=== PATIENT | female | born 1965 | race Caucasian/White ===

== ENCOUNTER 2017-11-14 09:29 | Emergency (ER) | payer BC ==
[2017-11-14] MEDS ORDERED: Albuterol/Ipratropium 3.0-0.5 MG/3 ML Neb Soln ONE (09:43)
[2017-11-14] MEDS ORDERED: methylPREDNISolone Sodium Succinate 125 MG/2 ML SDV ONE (10:22)
[2017-11-14 17:26] VITALS: BP 122/76
--- NOTE | 2017-11-14 18:19 | CR ---
EXAMINATION: Portable chest radiograph. HISTORY: Shortness of breath. FINDINGS: The trachea is midline. The cardiomediastinal silhouette is within normal limits. Possible consolidat ion within the left lung base. No pleural effusion or pneumothorax. Osseous structures appear unremarkable. IMPRESSION: Possible left basilar/lingular consolidation.
[2017-11-15 12:20] LABS: CHLORIDE,CL 104 mmol/L (98-110); SODIUM,NA 139 mmol/L (136-146)
== END 2017-11-14 11:51 | disposition home or self-care (01) ==
LOC: MW.ED 09:29
DX: J44.9 Chronic obstructive pulmonary disease, unspecified (principal); Z91.14 Patient's other noncompliance with medication regimen
CPT/HCPCS: 36415; 71010; 71010-26; 80053; 84484; 85025; 85610; 85730; 93005; 96374; 99283; 99285-25

== ENCOUNTER 2018-07-24 19:22 | Emergency (ER) | payer BC ==
[2018-07-24 19:43] VITALS: BP 138/78
--- NOTE | 2018-07-24 19:50 | EDM.PDOC ---
ED HPI GENERAL MEDICAL PROBLEM - General Chief Complaint: General Stated Complaint: PT HAS DIFFICULTY BREATHING Time Seen by Provider: 07/24/18 19:48 Source of Information: Reports: Patient History Limitations: Reports: No Limitations - History of Present Illness INITIAL COMMENTS - FREE TEXT/NARRATIVE: HISTORY AND PHYSICAL: History of present illness: Patient is a 52-year-old female well-known to me here with complaint of back pain. Past medical history of anxiety disorder, bipolar disorder, COPD, type 2 diabetes, hypertension. Patient states that 5 weeks ago she was in the hospital in [place] for her depression and at that time they started weaning her off of her Effexor. She states that she went from 225 mg down to 75 mg over a period of couple weeks. Says since that time she's been experiencing back pain, shakiness, anxiety. She also reports she is feeling nauseous after she eats. She denies any chest pain/ pressure, SOB, abdominal pain, vomiting, diarrhea. She saw her primary care provider 1 week ago for these symptoms and she did have a thoracic and lumbar spine x-ray which showed degenerative changes. Her labs did show calcium of 10.6. She denies any suicidal thoughts. She has a follow-up with Lucille Guerra on 14 August. Patient's main reason for coming to the ED is her back pain. She states it is on the left side of her low back. She has radiation of pain down her left lateral leg. She denies any saddle anesthesia, loss of bowel or bladder control , or lower extremity weakness. Patient states she called the clinic today and she has an appt. tomorrow. Review of systems: As per history of present illness and below otherwise all systems reviewed and negative. Past medical history: As per history of present illness and as reviewed below otherwise noncontributory. Surgical history: As per history of present illness and as reviewed below otherwise noncontributory. Social history: No reported history of drug or alcohol abuse. Family history: As per history of present illness and as reviewed below otherwise noncontributory. Physical exam: General: Patient sitting comfortably in no acute distress and nontoxic appearing. Patient is tremulous. HEENT: Atraumatic, normocephalic, pupils reactive, negative for conjunctival pallor or scleral icterus, mucous membranes moist, throat clear, neck supple, nontender, trachea midline. No meningeal signs. Lungs: Clear to auscultation, breath sounds equal bilaterally, chest nontender. Heart: S1S2, regular, negative for clicks, rubs, or overt murmur. Abdomen: Soft, nondistended, nontender. Negative for masses or hepatosplenomegaly. Negative for costovertebral tenderness. Pelvis: Stable nontender. Genitourinary: Deferred. Rectal: Deferred. Spin: No spinous process tenderness at thoracic and cervical spine. Pain to palpation of left paraspinals. Extremities: Atraumatic, negative for cords or calf pain. Neurovascular unremarkable. Neuro: Awake, alert, oriented. Cranial nerves II through XII unremarkable. Cerebellum unremarkable. Motor and sensory unremarkable throughout. Exam nonfocal. Notes: Discussed with patient that with her hypercalcemia and array of symptoms she should discuss checking her parathyroid with her primary care provider Diagnostics: [] Therapeutics: IM Ketorolac 60mg IM Norflex 60mg Zofran ODT Prescriptions: None Impression: Lumbar back pain Plan: 1. Heat or ice, motrin, and gentle stretches as tolerated. 2. Follow up with your primary care provider tomorrow 3. Return to ED as needed as discussed Definitive disposition and diagnosis as appropriate pending reevaluation and review of above. back Pain Score (Numeric/FACES): 8 - Related Data Allergies Allergy/AdvReac Type Severity Reaction Status Date / Time liraglutide [From Victoza] Allergy Depression Verified 11/14/17 17:22 prednisone Allergy Depression Verified 11/14/17 17:22 Home Meds: Home Meds LORazepam 0.5 mg PO DAILY 11/14/14 [History] Lisinopril 2.5 mg PO DAILY 11/14/14 [History] Sertraline [Zoloft] 100 mg PO BEDTIME 11/14/14 [History] atorvaSTATin [Lipitor] 80 mg PO BEDTIME 11/14/14 [History] sitaGLIPtin Phos/Metformin HCl [Janumet 50-500 mg Tablet] 1 each PO BID [History] Aspirin [Prabhu Chewable] 81 mg PO DAILY 11/22/14 [History] Levomefolate Calcium [l-Methylfolate] 15 mg PO DAILY 11/22/14 [History] Melatonin 1 mg PO DAILY 11/22/14 [History] Omeprazole 20 mg PO BEDTIME 11/22/14 [History] Vortioxetine Hydrobromide [Brintellix] 20 mg PO DAILY 11/22/14 [History] Ziprasidone HCl 40 mg PO DAILY 11/22/14 [History] lamoTRIgine [Lamotrigine] 150 mg PO DAILY 11/22/14 [History] Past Medical History - Past Health History Medical/Surgical History: Denies Medical/Surgical History HEENT History: Reports: None Cardiovascular History: Reports: High Cholesterol Respiratory History: Reports: COPD 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: Musculoskeletal History: Reports: Arthritis Psychiatric History: Reports: Anxiety, Depression Endocrine/Metabolic History: Reports: Diabetes, Type II Immunologic History: Reports: None - Infectious Disease History Infectious Disease History: Reports: Chicken Pox - Past Surgical History HEENT Surgical History: Reports: Tonsillectomy Cardiovascular Surgical History: Reports: Other (See Below) Female Surgical History: Reports: Hysterectomy Social & Family History - Family History Family Medical History: Noncontributory HEENT: Reports: None Cardiac: Reports: Blood Clots/VTE/DVT, High Cholesterol, Hypertension, [place] Respiratory: Reports: Asthma GI: Reports: None : Reports: None OBGYN: Reports: None Musculoskeletal: Reports: Arthritis Neurological: Reports: None Psychiatric: Reports: Bipolar, Depression, Hallucinations Endocrine/Metabolic: Reports: Diabetes, type II Hematologic: Reports: None Immunologic: Reports: None Dermatologic: Reports: None Oncologic: Reports: Lung, Lymphoma - Tobacco Use Smoking Status *Q: Current Every Day Smoker Years of Tobacco use: 30 Packs/Tins Daily: 15 - Caffeine Use Caffeine Use: Reports: Soda - Recreational Drug Use Recreational Drug Use: No ED ROS GENERAL - Review of Systems Review Of Systems: ROS reveals no pertinent complaints other than HPI. ED EXAM, GENERAL - Physical Exam Exam: See Below (see dictation) Course - Vital Signs Last Recorded V/S: Last Vital Signs Temp 36.0 C 07/24/18 19:41 Pulse 108 H 07/24/18 19:41 Resp 18 07/24/18 19:41 BP 138/78 07/24/18 19:41 Pulse Ox 95 07/24/18 19:41 - Orders/Labs/Meds Orders: Active Orders 24 hr Category Date Time Status Ondansetron [Zofran ODT] Med 07/24/18 20:32 Once 4 mg PO ONETIME ONE Meds: Medications Discontinued Medications Generic Name Dose Route Start Last Admin Trade Name Sidney PRN Reason Stop Dose Admin Ketorolac Tromethamine 60 mg 07/24/18 19:59 07/24/18 20:15 Toradol IM 07/24/18 20:00 60 mg ONETIME ONE Administration Orphenadrine Citrate 60 mg 07/24/18 19:59 07/24/18 20:18 Norflex IM 07/24/18 20:00 60 mg NOW STA Administration Departure - Departure Time of Disposition: 20:35 Disposition: Home, Self-Care 01 Condition: Good Clinical Impression: Back pain - Discharge Information Referrals: PCP,None [Primary Care Provider] - Forms: ED Department Discharge Additional Instructions: The following information is given to patients seen in the emergency department who are being discharged to home. This information is to outline your options for follow-up care. We provide all patients seen in our emergency department with a follow-up referral. The need for follow-up, as well as the timing and circumstances, are variable depending upon the specifics of your emergency department visit. If you don't have a primary care physician on staff, we will provide you with a referral. We always advise you to contact your personal physician following an emergency department visit to inform them of the circumstance of the visit and for follow-up with them and/or the need for any referrals to a consulting specialist. The emergency department will also refer you to a specialist when appropriate. This referral assures that you have the opportunity for follow-up care with a specialist. All of these measure are taken in an effort to provide you with optimal care, which includes your follow-up. Under all circumstances we always encourage you to contact your private physician who remains a resource for coordinating your care. When calling for follow-up care, please make the office aware that this follow-up is from your recent emergency room visit. If for any reason you are refused follow-up, please contact the [facility] Emergency Department at and asked to speak to the emergency department charge nurse. [facility] [address] [place] [id number] 1. Heat or ice, motrin, and gentle stretches as tolerated. 2. Follow up with your primary care provider tomorrow 3. Return to ED as needed as discussed - My Orders Last 24 Hours: My Active Orders 07/24/18 20:32 Ondansetron [Zofran ODT] 4 mg PO ONETIME ONE - Assessment/Plan Last 24 Hours: My Active Orders 07/24/18 20:32 Ondansetron [Zofran ODT] 4 mg PO ONETIME ONE
[2018-07-24] MEDS ORDERED: Ketorolac 60 MG/2 ML SDV IM ONE (19:59)
[2018-07-24] MEDS ORDERED: Ondansetron 4 MG Tab.DIS PO ONE (20:32)
== END 2018-07-24 21:00 | disposition home or self-care (01) ==
LOC: MW.ED 19:22
DX: M54.5 Low back pain (principal); E11.9 Type 2 diabetes mellitus without complications; F17.210 Nicotine dependence, cigarettes, uncomplicated; F31.9 Bipolar disorder, unspecified; F41.9 Anxiety disorder, unspecified; Z79.82 Long term (current) use of aspirin; Z79.899 Other long term (current) drug therapy; Z88.8 Allergy status to other drugs, medicaments and biological substances
CPT/HCPCS: 96372; 99283; A9270; J1885; J2360

== ENCOUNTER 2019-01-25 16:21 | Emergency (ER) | payer BC ==
[2019-01-25] MEDS ORDERED: Succinylcholine 200 MG/10 ML MDV IV ONE (16:22)
[2019-01-25] MEDS ORDERED: Rocuronium 100 MG/10 ML MDV IVPUSH ONE (16:22)
[2019-01-25] MEDS ORDERED: Sodium Chloride 0.9% 1,000 ML IV ONE (16:31)
[2019-01-25] MEDS ORDERED: Sodium Chloride 0.9% 10 ML Syringe FLUSH PRN (16:31)
[2019-01-25] MEDS ORDERED: Sodium Chloride 0.9% 2.5 ML Syringe FLUSH PRN (16:31)
[2019-01-25] MEDS ORDERED: Naloxone 0.4 MG/ML Syringe IVPUSH ONE (16:31)
--- NOTE | 2019-01-25 16:33 | EDM.PDOC ---
ED HPI GENERAL MEDICAL PROBLEM - General Chief Complaint: Drug or Alcohol Abuse Stated Complaint: OVERDOSE Time Seen by Provider: 01/25/19 16:29 - History of Present Illness INITIAL COMMENTS - FREE TEXT/NARRATIVE: HISTORY AND PHYSICAL: History of present illness: The patient is a 53-year-old female who is here via EMS after family called for an intentional overdose of her medications. Patient has a known history of COPD and according to her old clinic provider who now works here in the ED she was not very compliant with that. The patient follows with a local counselor, Lucille Guerra, and police initially brought me prescription bottles of Xanax 1 mg tablets and Ritalin 10 milligrams tablets of which there were 34 of the 1 mg Xanax tablets missing and that prescription had a total of 60 tablets dispensed on January 04 with a prescription indicating to take one tablet twice a day as needed and the Ritalin had 11 tablets left of a prescription written on November 15 with 60 tablets. When I discussed with the and he said that the counselor was trying to wean her off the Xanax and onto a new medication but he is not sure of that knee. He says that she has multiple medications at home and the family has currently gone home to get all those meds for us and they will be sent with the patient. EMS says that the patient did admit to them that she did take these medications intentionally to harm herself. It is unsure of the exact time of ingestion but was sometime this morning as she stopped testing her granddaughter this morning which is why they were concerned and called for help. Currently in the ED the patient does not offer any history to me and is very drowsy and obtunded and can answer simple questions but cannot focus on any significant questions and cannot tell me about today's events. Further information from the patient is unavailable and the history is primarily from the patient's family. EMS said there was no vomit at the scene and the granddaughter said that when she came home and was told by the patient that she had taken this overdose she also noticed no vomiting. The patient had no other complaints and did not offer any reasons why she did these actions today. EMS also noted that the patient had NyQuil at the bedside and she may have been taking some of that as well Review of systems: As per history of present illness and below otherwise all systems reviewed and negative. Past medical history: As per history of present illness and as reviewed below otherwise noncontributory. Surgical history: As per history of present illness and as reviewed below otherwise noncontributory. Social history: No reported history of drug or alcohol abuse. Family history: As per history of present illness and as reviewed below otherwise noncontributory. Physical exam: General: well-developed obese female who is arousable to stimulation but does not speak spontaneously and cannot perform full sentences and answer to questions. She has no gag reflex. Vital signs are noted by me including her O2 sat on room air which responded with oxygen therapy. HEENT: Atraumatic, normocephalic, pupils are small 2 mm and sluggish, negative for conjunctival pallor or scleral icterus, mucous membranes very dry throat clear, neck supple, nontender, trachea midline. Lungs: Poor effort and diminished air exchange throughout all ely, breath sounds equal bilaterally, chest nontender. Heart: S1S2, regular, negative for clicks, rubs, or JVD. Abdomen: Soft, nondistended, nontender. Negative for masses or hepatosplenomegaly. NABS Pelvis: Stable nontender. Genitourinary: Deferred. Rectal: Deferred. Extremities: Atraumatic, no visible evidence of any trauma defects or deformities. Neurovascular unremarkable. Neuro: Patient is arousable to stimulation and will open her eyes but immediately shuts them and goes back to an obtunded state. She is able to wiggle her toes and squeeze my hands but motor is diminished throughout due to poor effort but there is no focal or lateralizing signs. Further exam is unobtainable Diagnostics: EKG CBC CMP Tylenol and aspirin levels alcohol INR troponin TSH UA UDS chest x- ray post intubation Therapeutics: IV O2 monitor IV fluids Narcan Patient was given 2 mg of Narcan to see if there was much response. There is no history of any narcotics use but is unclear as many of the medications the patient takes are unclear. Patient seemed a little bit more arousable but went back to a obtunded state. At this point anesthesia is at bedside and we will prophylactically intubate the patient for airway protection as the extent of overdose is unknown. and family are aware that we need to protect the airway.Poison control was contacted by nursing at 1637 and they recommend symptomatic care and once more information is known about any other coingestions they will follow up with the patient in [place] 1635: Case was discussed with Dr. Brito the ER doctor at [place] at [facility] who accepts the patient for transfer and flight team is in route. Please note that I will continue to monitor testing results up until the patient is transferred by flight. I will check the post intubation x-ray. Please see anesthesia note for intubation events. Critical care time excluding procedures:31min Impression: Intentional overdose with significant altered mental status Definitive disposition and diagnosis as appropriate pending reevaluation and review of above. - Related Data Allergies Allergy/AdvReac Type Severity Reaction Status Date / Time liraglutide [From Victoza] Allergy Depression Verified 10/30/18 13:46 prednisone Allergy Depression Verified 10/30/18 13:46 Home Meds: Home Meds LORazepam 0.5 mg PO DAILY 11/14/14 [History] Lisinopril 2.5 mg PO DAILY 11/14/14 [History] Sertraline [Zoloft] 100 mg PO BEDTIME 11/14/14 [History] atorvaSTATin [Lipitor] 80 mg PO BEDTIME 11/14/14 [History] sitaGLIPtin Phos/Metformin HCl [Janumet 50-500 mg Tablet] 1 each PO BID [History] Aspirin [Prabhu Chewable] 81 mg PO DAILY 11/22/14 [History] Levomefolate Calcium [l-Methylfolate] 15 mg PO DAILY 11/22/14 [History] Melatonin 1 mg PO DAILY 11/22/14 [History] Omeprazole 20 mg PO BEDTIME 11/22/14 [History] Vortioxetine Hydrobromide [Brintellix] 20 mg PO DAILY 11/22/14 [History] Ziprasidone HCl 40 mg PO DAILY 11/22/14 [History] lamoTRIgine [Lamotrigine] 150 mg PO DAILY 11/22/14 [History] Azithromycin [Zithromax] 250 mg PO DAILY 5 Days #6 tab 10/30/18 [Rx] Past Medical History - Past Health History Medical/Surgical History: Denies Medical/Surgical History HEENT History: Reports: None Cardiovascular History: Reports: High Cholesterol Respiratory History: Reports: COPD 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: Musculoskeletal History: Reports: Arthritis Psychiatric History: Reports: Anxiety, Depression Endocrine/Metabolic History: Reports: Diabetes, Type II Immunologic History: Reports: None - Infectious Disease History Infectious Disease History: Reports: Chicken Pox - Past Surgical History HEENT Surgical History: Reports: Tonsillectomy Cardiovascular Surgical History: Reports: Other (See Below) Female Surgical History: Reports: Hysterectomy Social & Family History - Family History Family Medical History: Noncontributory HEENT: Reports: None Cardiac: Reports: Blood Clots/VTE/DVT, High Cholesterol, Hypertension, CT Respiratory: Reports: Asthma GI: Reports: None : Reports: None OBGYN: Reports: None Musculoskeletal: Reports: Arthritis Neurological: Reports: None Psychiatric: Reports: Bipolar, Depression, Hallucinations Endocrine/Metabolic: Reports: Diabetes, type II Hematologic: Reports: None Immunologic: Reports: None Dermatologic: Reports: None Oncologic: Reports: Lung, Lymphoma - Caffeine Use Caffeine Use: Reports: Soda ED ROS GENERAL - Review of Systems Review Of Systems: ROS reveals no pertinent complaints other than HPI. ED EXAM, GENERAL - Physical Exam Exam: See Below (See dictation) Course - Orders/Labs/Meds Orders: Active Orders 24 hr Category Date Time Status Blood Glucose Check, Bedside [RC] ONETIME Care 01/25/19 16:30 Ordered Cardiac Monitoring [RC] . DIRECTED Care 01/25/19 16:30 Ordered EKG Documentation Completion [RC] STAT Care 01/25/19 16:30 Ordered Oxygen Therapy, ED [RC] ASDIRECTED Care 01/25/19 16:30 Ordered Pulse Oximetry [RC] ASDIRECTED Care 01/25/19 16:30 Ordered Chest 1V Frontal [CR] Stat Exams 01/25/19 16:31 Ordered ACETAMINOPHEN [CHEM] Stat Lab 01/25/19 16:30 Ordered CBC WITH AUTO DIFF [HEME] Stat Lab 01/25/19 16:30 Ordered COMPREHENSIVE METABOLIC PN,CMP [CHEM] Stat Lab 01/25/19 16:30 Ordered DRUG SCREEN, URINE [URCHEM] Stat Lab 01/25/19 16:31 Ordered ETHANOL BLOOD MEDICAL [CHEM] Stat Lab 01/25/19 16:30 Ordered INR,PT,PROTHROMBIN TIME [COAG] Stat Lab 01/25/19 16:30 Ordered SALICYLATE [CHEM] Stat Lab 01/25/19 16:31 Ordered TROPONIN I [CHEM] Stat Lab 01/25/19 16:30 Ordered TSH [CHEM] Stat Lab 01/25/19 16:30 Ordered UA RFX VERONICA AND CULT IF INDIC [URIN] Stat Lab 01/25/19 16:31 Ordered Sodium Chloride 0.9% [Normal Saline] 1,000 ml Med 01/25/19 16:31 Ordered IV STAT Sodium Chloride 0.9% [Saline Flush] Med 01/25/19 16:31 Ordered 10 ml FLUSH ASDIRECTED PRN Sodium Chloride 0.9% [Saline Flush] Med 01/25/19 16:31 Ordered 2.5 ml FLUSH ASDIRECTED PRN Saline Lock Insert [OM.PC] Stat Oth 01/25/19 16:30 Ordered Medication Orders Sodium Chloride (Normal Saline) 1,000 mls @ 999 mls/hr IV STAT ONE Stop: 01/25/19 17:31 Sodium Chloride (Saline Flush) 10 ml FLUSH ASDIRECTED PRN PRN Reason: Keep Vein Open Sodium Chloride (Saline Flush) 2.5 ml FLUSH ASDIRECTED PRN PRN Reason: Keep Vein Open Meds: Medications Generic Name Dose Route Start Last Admin Trade Name Freq PRN Reason Stop Dose Admin Sodium Chloride 1,000 mls @ 999 mls/hr 01/25/19 16:31 Normal Saline IV 01/25/19 17:31 STAT ONE Sodium Chloride 10 ml 01/25/19 16:31 Saline Flush FLUSH ASDIRECTED PRN Keep Vein Open Sodium Chloride 2.5 ml 01/25/19 16:31 Saline Flush FLUSH ASDIRECTED PRN Keep Vein Open Discontinued Medications Generic Name Dose Route Start Last Admin Trade Name Freq PRN Reason Stop Dose Admin Naloxone HCl 2 mg 01/25/19 16:31 Narcan IVPUSH 01/25/19 16:32 ONETIME ONE Departure - Departure Time of Disposition: 16:46 Disposition: DC/Tfer to Acute Hospital 02 Condition: Fair, Serious Clinical Impression: Intentional drug overdose Qualifiers: Encounter type: initial encounter Qualified Code(s): T50.902A - Poisoning by unspecified drugs, medicaments and biological substances, intentional self-harm , initial encounter Altered mental status Qualifiers: Altered mental status type: stupor Qualified Code(s): R40.1 - Stupor - Discharge Information Referrals: PCP,Unknown [Primary Care Provider] - Forms: ED Department Discharge - My Orders Last 24 Hours: My Active Orders 01/25/19 16:30 Blood Glucose Check, Bedside [RC] ONETIME Cardiac Monitoring [RC] . DIRECTED EKG Documentation Completion [RC] STAT Oxygen Therapy, ED [RC] ASDIRECTED Pulse Oximetry [RC] ASDIRECTED ACETAMINOPHEN [CHEM] Stat CBC WITH AUTO DIFF [HEME] Stat COMPREHENSIVE METABOLIC PN,CMP [CHEM] Stat ETHANOL BLOOD MEDICAL [CHEM] Stat INR,PT,PROTHROMBIN TIME [COAG] Stat TROPONIN I [CHEM] Stat TSH [CHEM] Stat Saline Lock Insert [OM.PC] Stat 01/25/19 16:31 Chest 1V Frontal [CR] Stat DRUG SCREEN, URINE [URCHEM] Stat SALICYLATE [CHEM] Stat UA RFX VERONICA AND CULT IF INDIC [URIN] Stat Sodium Chloride 0.9% [Normal Saline] 1,000 ml IV STAT Sodium Chloride 0.9% [Saline Flush] 10 ml FLUSH ASDIRECTED PRN Sodium Chloride 0.9% [Saline Flush] 2.5 ml FLUSH ASDIRECTED PRN - Assessment/Plan Last 24 Hours: My Active Orders 01/25/19 16:30 Blood Glucose Check, Bedside [RC] ONETIME Cardiac Monitoring [RC] . DIRECTED EKG Documentation Completion [RC] STAT Oxygen Therapy, ED [RC] ASDIRECTED Pulse Oximetry [RC] ASDIRECTED ACETAMINOPHEN [CHEM] Stat CBC WITH AUTO DIFF [HEME] Stat COMPREHENSIVE METABOLIC PN,CMP [CHEM] Stat ETHANOL BLOOD MEDICAL [CHEM] Stat INR,PT,PROTHROMBIN TIME [COAG] Stat TROPONIN I [CHEM] Stat TSH [CHEM] Stat Saline Lock Insert [OM.PC] Stat 01/25/19 16:31 Chest 1V Frontal [CR] Stat DRUG SCREEN, URINE [URCHEM] Stat SALICYLATE [CHEM] Stat UA RFX VERONICA AND CULT IF INDIC [URIN] Stat Sodium Chloride 0.9% [Normal Saline] 1,000 ml IV STAT Sodium Chloride 0.9% [Saline Flush] 10 ml FLUSH ASDIRECTED PRN Sodium Chloride 0.9% [Saline Flush] 2.5 ml FLUSH ASDIRECTED PRN
[2019-01-25] MEDS ORDERED: Lidocaine 1% 50 ML MDV ONE (16:52)
[2019-01-25] MEDS ORDERED: Propofol 200 MG/20 ML SDV ONE (16:53)
[2019-01-25 17:23] LABS: CHLORIDE,CL 105 mmol/L (98-107); SODIUM,NA 139 mmol/L (136-145)
--- NOTE | 2019-01-25 17:46 | CR ---
Indication: Pain. Shortness of breath. Technique: A single AP portable view of the chest was obtained. Comparison: October 30, 2018. Findings: An ETT was identified with the tip extending into the right main bronchus. An NG tube is identified extending into the left lower lobe. The heart is enlarged. Left basilar atelectasis and/or infiltrate and small left pleural effusion is seen. The right lung is clear. No pneumothorax is identified. Impression: ET tube identified with the tip extending into the right mainstem bronchus. Left basilar atelectasis and/or infiltrate and small left pleural effusion. The findings were discussed with Dr. Mckee at the time of this dictation Dictated by Suzan Lucas MD @ Jan 25 2019 5:41PM Signed by Dr. Suzan Lucas @ Jan 25 2019 5:43PM
--- NOTE | 2019-01-25 18:13 | CR ---
Indication: Tube evaluation after patient movement Technique: Chest 1 view Comparison: January 25, 2019 at 5:01 p.m. Findings/Impression: An endotracheal tube tip terminates at the level of the zhanna and will need to be retracted. A gastric drainage tube is present. The gastric tube is only seen to the level of the mid cardiac shadow. The tip is not seen due to suboptimal exposure at the level of the lower chest. Recommend KUB to confirm placement. Stable cardiac size. No pneumothorax. Opacity at the left lung base may reflect atelectasis/infection/effusion. Dictated by Kaylyn Mahajan MD @ Jan 25 2019 6:11PM Signed by Dr. Kaylyn Mahajan @ Jan 25 2019 6:11PM
[2019-01-26 08:47] VITALS: BP 131/75
== END 2019-01-25 17:45 ==
LOC: MW.ED 16:21
DX: T43.632A Poisoning by methylphenidate, intentional self-harm, initial encounter (principal); T42.4X2A Poisoning by benzodiazepines, intentional self-harm, initial encounter; R41.82 Altered mental status, unspecified; E78.00 Pure hypercholesterolemia, unspecified; E11.9 Type 2 diabetes mellitus without complications; F41.9 Anxiety disorder, unspecified; F32.9 Major depressive disorder, single episode, unspecified; Z88.8 Allergy status to other drugs, medicaments and biological substances; Z88.5 Allergy status to narcotic agent; Z79.899 Other long term (current) drug therapy; Z79.82 Long term (current) use of aspirin
CPT/HCPCS: 71045; 80053; 80305; 81003; 82962; 84443; 84484; 85025; 85610; 93005; 96361; 96374; 99291; A9270; G0480; J0330; J2001; J2704; J7040; 99285

== ENCOUNTER 2019-02-19 09:02 | Emergency (ER) | payer BC ==
--- NOTE | 2019-02-19 09:26 | EDM.PDOC ---
ED HPI GENERAL MEDICAL PROBLEM - General Chief Complaint: Lower Extremity Injury/Pain Stated Complaint: SPOKE TO NURSE Time Seen by Provider: 02/19/19 09:22 - History of Present Illness INITIAL COMMENTS - FREE TEXT/NARRATIVE: HISTORY AND PHYSICAL: History of present illness: Patient 53-year-old female presented Serb left lower extremity pain and swelling this pain off and on for about 3 weeks she was hospitalized for psychiatric reasons. She denies any other complaints she has no history DVT or PE Review of systems: As per history of present illness and below otherwise all systems reviewed and negative. Past medical history: As per history of present illness and as reviewed below otherwise noncontributory. Surgical history: As per history of present illness and as reviewed below otherwise noncontributory. Social history: No reported history of drug or alcohol abuse. Family history: As per history of present illness and as reviewed below otherwise noncontributory. Physical exam: HEENT: Atraumatic, normocephalic, pupils reactive, negative for conjunctival pallor or scleral icterus, mucous membranes moist, throat clear, neck supple, nontender, trachea midline. Lungs: Clear to auscultation, breath sounds equal bilaterally, chest nontender. Heart: S1S2, regular, negative for clicks, rubs, or JVD. Abdomen: Soft, nondistended, nontender. Negative for masses or hepatosplenomegaly. Negative for costovertebral tenderness. Pelvis: Stable nontender. Genitourinary: Deferred. Rectal: Deferred. Extremities: No cords or calf pain tenderness to palpation left calf neurovascular exam unremarkable. Neuro: Awake, alert, oriented. Cranial nerves II through XII unremarkable. Cerebellum unremarkable. Motor and sensory unremarkable throughout. Exam nonfocal. Diagnostics: Ultrasound left lower extremity Therapeutics: None Impression: #1 left leg pain rule out DVT Definitive disposition and diagnosis as appropriate pending reevaluation and review of above. - Related Data Allergies Allergy/AdvReac Type Severity Reaction Status Date / Time liraglutide [From Victoza] Allergy Depression Verified 02/19/19 09:22 prednisone Allergy Depression Verified 02/19/19 09:22 Home Meds: Home Meds Lisinopril 10 mg PO DAILY 11/14/14 [History] atorvaSTATin [Lipitor] 40 mg PO BEDTIME 11/14/14 [History] sitaGLIPtin Phos/Metformin HCl [Janumet 50-500 mg Tablet] 1 each PO BID [History] Aspirin [Prabhu Chewable] 81 mg PO DAILY 11/22/14 [History] Omeprazole 20 mg PO BEDTIME 11/22/14 [History] lamoTRIgine [Lamotrigine] 250 mg PO DAILY 11/22/14 [History] Gabapentin [Neurontin] 1,200 mg PO TID 02/19/19 [History] Lurasidone HCl [Latuda] 80 mg PO DAILY 02/19/19 [History] Venlafaxine HCl [Venlafaxine ER] 37.5 mg PO DAILY 02/19/19 [History] Past Medical History - Past Health History Medical/Surgical History: Denies Medical/Surgical History HEENT History: Reports: None Cardiovascular History: Reports: High Cholesterol Respiratory History: Reports: COPD Gastrointestinal History: Reports: Colon Polyp [employer] History: Reports: Musculoskeletal History: Reports: Arthritis Psychiatric History: Reports: Anxiety, Depression Endocrine/Metabolic History: Reports: Diabetes, Type II Immunologic History: Reports: None - Infectious Disease History Infectious Disease History: Reports: Chicken Pox - Past Surgical History HEENT Surgical History: Reports: Tonsillectomy Cardiovascular Surgical History: Reports: Other (See Below) Female Surgical History: Reports: Hysterectomy Social & Family History - Family History Family Medical History: Noncontributory HEENT: Reports: None Cardiac: Reports: Blood Clots/VTE/DVT, High Cholesterol, Hypertension, [place] Respiratory: Reports: Asthma GI: Reports: None : Reports: None OBGYN: Reports: None Musculoskeletal: Reports: Arthritis Neurological: Reports: None Psychiatric: Reports: Bipolar, Depression, Hallucinations Endocrine/Metabolic: Reports: Diabetes, type II Hematologic: Reports: None Immunologic: Reports: None Dermatologic: Reports: None Oncologic: Reports: Lung, Lymphoma - Caffeine Use Caffeine Use: Reports: Soda Review of Systems - Review of Systems Review Of Systems: ROS reveals no pertinent complaints other than HPI. ED EXAM, GENERAL - Physical Exam Exam: See Below (Dictation) Course - Vital Signs Last Recorded V/S: Last Vital Signs Temp 36.6 C 02/19/19 09:23 Pulse 115 H 02/19/19 09:23 Resp 16 02/19/19 09:23 BP 108/65 02/19/19 09:23 Pulse Ox 95 02/19/19 09:23 Departure - Departure Time of Disposition: 10:08 Disposition: Home, Self-Care 01 Condition: Good Clinical Impression: Leg pain, Encounter for medical screening examination - Discharge Information Referrals: Maude Skinner MD [Primary Care Provider] - Forms: ED Department Discharge Additional Instructions: The following information is given to patients seen in the emergency department who are being discharged to home. This information is to outline your options for follow-up care. We provide all patients seen in our emergency department with a follow-up referral. The need for follow-up, as well as the timing and circumstances, are variable depending upon the specifics of your emergency department visit. If you don't have a primary care physician on staff, we will provide you with a referral. We always advise you to contact your personal physician following an emergency department visit to inform them of the circumstance of the visit and for follow-up with them and/or the need for any referrals to a consulting specialist. The emergency department will also refer you to a specialist when appropriate. This referral assures that you have the opportunity for followup care with a specialist. All of these measure are taken in an effort to provide you with optimal care, which includes your followup. Under all circumstances we always encourage you to contact your private physician who remains a resource for coordinating your care. When calling for followup care, please make the office aware that this follow-up is from your recent emergency room visit. If for any reason you are refused follow-up, please contact the [facility] emergency department at and asked to speak to the emergency department charge nurse. Follow-up primary medical doctor as needed as discussed return as needed as discussed
[2019-02-19 09:31] VITALS: BP 108/65
--- NOTE | 2019-02-19 11:23 | US ---
ULTRASOUND EXAMINATION OF the left lower extremity WITH DOPPLER HISTORY: Pain FINDINGS: Examination of the left leg was performed from the groin to the calf region. All visualized segments including common femoral, proximal greater saphenous, superficial femoral, popliteal and calf veins appear patent with good compressibility and augmentation. There is no evidence of deep vein thrombosis. Moderate Dey's cyst noted. IMPRESSION: No evidence of a DVT.
== END 2019-02-19 12:33 | disposition home or self-care (01) ==
LOC: MW.ED 09:02
DX: M79.662 Pain in left lower leg (principal); J44.9 Chronic obstructive pulmonary disease, unspecified; E78.00 Pure hypercholesterolemia, unspecified; E11.9 Type 2 diabetes mellitus without complications; F41.9 Anxiety disorder, unspecified; F32.9 Major depressive disorder, single episode, unspecified; Z79.899 Other long term (current) drug therapy; Z88.8 Allergy status to other drugs, medicaments and biological substances
CPT/HCPCS: 93971-26-LT; 93971-LT; 99284-25